=== PATIENT | male | born 1975 ===

== ENCOUNTER → 2021-05-28 | Outpatient (CLI) | payer MEDICAID | END | disposition home or self-care (01) | LOC: XYW 09:08 | PROVIDERS: ATTEND Internal Medicine | DX: I10 Essential (primary) hypertension (principal) | CPT/HCPCS: 93306 ==

== ENCOUNTER 2023-06-19 18:09 | Emergency (ER) | payer MEDICAID ==
[~2023-06-19] VITALS: Ht 180.3 cm; Wt 100.0 kg
[2023-06-19 19:04] VITALS: BP 124/67; PULSE 103; RESP 18; O2SAT 97
[2023-06-19] MEDS ORDERED: IBUPROFEN 600 MG TAB PO ONE (19:15)
== END 2023-06-19 22:45 | disposition left against medical advice (07) ==
LOC: ER 18:09
DX: R50.9 Fever, unspecified (principal); J02.9 Acute pharyngitis, unspecified; H92.02 Otalgia, left ear; R19.7 Diarrhea, unspecified; Z53.21 Procedure and treatment not carried out due to patient leaving prior to being seen by health care provider